=== PATIENT | female | born 1955 | race Two or more races ===

== ENCOUNTER → 2017-07-19 | Emergency (ER) | payer OTHER ==
[~2017-07-19] VITALS: Ht 167.6 cm; Wt 83.5 kg
[~2017-07-19] MED LIST: MELOXICAM7.5 MG; METHOCARBAMOL500 MG
== END | disposition home or self-care (01) ==
LOC: ER 10:39
DX: N13.39 Other hydronephrosis (principal); R10.813 Right lower quadrant abdominal tenderness

== ENCOUNTER 2019-12-09 11:57 | Emergency (ER) | payer OTHER ==
[~2019-12-09] VITALS: Ht 167.6 cm; Wt 70.8 kg
[2019-12-09] MEDS ORDERED: [UNRECOGNIZED DRUG - REMARK] (12:35)
== END 2019-12-09 22:42 | disposition home or self-care (01) ==
LOC: ER 11:57
DX: R13.19 Other dysphagia (principal)

== ENCOUNTER 2021-07-07 02:25 | Emergency (ER) | payer OTHER ==
[~2021-07-07] VITALS: Ht 167.6 cm; Wt 61.2 kg
[~2021-07-07 02:25] MED LIST changes: +[UNRECOGNIZED DRUG - REMARK]
[2021-07-07] MEDS ORDERED: VISTARIL25 MG (02:55)
== END 2021-07-07 09:25 | disposition home or self-care (01) ==
LOC: ER 02:25
DX: N20.1 Calculus of ureter (principal); R10.2 Pelvic and perineal pain

== ENCOUNTER 2021-07-11 14:13 | Emergency (ER) | payer OTHER ==
[~2021-07-11] VITALS: Ht 167.6 cm; Wt 59.4 kg
[~2021-07-11 14:13] MED LIST changes: +VISTARIL25 MG
[2021-07-12] MEDS ORDERED: PERCOCET 10-321 EACH PO (10:44)
== END 2021-07-11 19:44 | disposition home or self-care (01) ==
LOC: ER 14:13
DX: N20.1 Calculus of ureter (principal); R10.32 Left lower quadrant pain

== ENCOUNTER 2021-07-12 10:19 | Inpatient (IN) | payer OTHER ==
[~2021-07-12] VITALS: Ht 167.6 cm; Wt 59.4 kg
[2021-07-12] MEDS ORDERED: PERCOCET 10-321 EACH PO (10:44)
== END 2021-07-12 20:30 | disposition home or self-care (01) | DRG 661 ==
LOC: ER 10:19 → SEC-K 12:01 → O/R 12:01
PROVIDERS: ADMIT Urology; ATTEND Urology
PROC: BT1FZZZ Fluoroscopy of Left Kidney, Ureter and Bladder (ICD-10-PCS; 2021-07-12)
PROC: 0T778DZ Dilation of Left Ureter with Intraluminal Device, Via Natural or Artificial Opening Endoscopic (ICD-10-PCS; principal; 2021-07-12 17:00)
DX: N20.1 Calculus of ureter (principal); R10.9 Unspecified abdominal pain; Z20.822 Contact with and (suspected) exposure to COVID-19

== ENCOUNTER 2021-07-18 07:37 | Outpatient (CLI) | payer OTHER ==
[~2021-07-18 07:37] MED LIST changes: +PERCOCET 10-321 EACH PO
== END 2021-07-18 07:38 | disposition home or self-care (01) ==
LOC: RAD 07:37
PROVIDERS: ATTEND Urology
DX: N20.1 Calculus of ureter (principal)

== ENCOUNTER 2021-11-26 13:30 | Outpatient (CLI) | payer OTHER | END 2021-11-26 13:31 | disposition home or self-care (01) | LOC: RAD 13:30 | PROVIDERS: ATTEND Urology | DX: N20.1 Calculus of ureter (principal) ==

== ENCOUNTER 2021-12-05 05:20 | Day surgery (SDC) | payer OTHER ==
[~2021-12-05] VITALS: Ht 167.6 cm; Wt 61.2 kg
== END 2021-12-05 14:55 | disposition home or self-care (01) ==
LOC: CIR.AMB 05:20
PROVIDERS: ATTEND Urology
DX: N20.1 Calculus of ureter (principal); Z88.6 Allergy status to analgesic agent; M79.7 Fibromyalgia; Z85.89 Personal history of malignant neoplasm of other organs and systems

== ENCOUNTER 2021-12-26 10:52 | Outpatient (CLI) | payer OTHER | END 2021-12-26 11:06 | disposition home or self-care (01) | LOC: RAD 10:52 | PROVIDERS: ATTEND Urology | DX: N20.1 Calculus of ureter (principal) ==

== ENCOUNTER 2022-06-06 15:52 | Emergency (ER) | payer OTHER ==
[~2022-06-06] VITALS: Ht 167.6 cm; Wt 60.3 kg
== END 2022-06-06 19:33 | disposition home or self-care (01) ==
LOC: ER 15:52
DX: B34.9 Viral infection, unspecified (principal); Z85.89 Personal history of malignant neoplasm of other organs and systems; Z88.6 Allergy status to analgesic agent; Z20.822 Contact with and (suspected) exposure to COVID-19

== ENCOUNTER 2023-04-01 14:50 | Emergency (ER) | payer OTHER ==
[~2023-04-01] VITALS: Ht 162.6 cm; Wt 72.6 kg
[2023-04-01] MEDS ORDERED: ZYRTEC10 MG PO (21:23)
[2023-04-01] MEDS ORDERED: MUCINEX DM ER1 EACH PO (21:23)
[2023-04-01] MEDS ORDERED: AYR SALINE50 ML NASAL (21:23)
== END 2023-04-01 22:27 | disposition home or self-care (01) ==
LOC: ER 14:50
DX: J06.9 Acute upper respiratory infection, unspecified (principal); Z88.6 Allergy status to analgesic agent; G43.909 Migraine, unspecified, not intractable, without status migrainosus; D64.9 Anemia, unspecified; C94.80 Other specified leukemias not having achieved remission
CPT/HCPCS: 36415; 96372; 99284; J1100

== ENCOUNTER 2023-05-27 16:42 | Emergency (ER) | payer OTHER ==
[~2023-05-27] VITALS: Ht 167.6 cm; Wt 66.7 kg
[~2023-05-27 16:42] MED LIST changes: +AYR SALINE50 ML NASAL; +MUCINEX DM ER1 EACH PO; +ZYRTEC10 MG PO
[2023-05-27] MEDS ORDERED: VITAMIN E (16:50)
[2023-05-27 19:06] LABS: HEMATOCRIT 33.7 % (36.0-45.00); HEMOGLOBIN 11.5 g/dL (12.0-15.00); MEAN CELL VOLUME 92.2 fL (80.00-100.00); MEAN CORPUSCULAR HEMOGLOBIN 31.4 pg (27.00-32.0); RED BLOOD COUNT 3.66 M/uL (4.00-6.00)
[2023-05-27 19:09] LABS: PLATELET COUNT 119 K/uL (150-450)
[2023-05-27 19:12] LABS: ALBUMIN 3.6 gm/dL (3.4-5.0); BILIRUBIN TOTAL 0.35 mg/dL (0.3-1.2); CALCIUM 8.9 mg/dL (8.5-10.1); CREATININE SERUM 0.53 mg/dL (0.55-1.02); GFR 115.77; GLOBULINA 2.7 G/DL (2.4-3.5); POTASSIUM 3.44 mEq/L (3.5-5.1); TOTAL PROTEIN 6.3 gm/dL (6.4-8.2)
[2023-05-27] MEDS ORDERED: MUCINEX D ER 61 EACH PO (19:57)
[2023-05-27] MEDS ORDERED: SINGULAIR10 MG PO (19:57)
[2023-05-27] MEDS ORDERED: ZYRTEC10 MG PO (19:57)
[2023-05-27] MEDS ORDERED: RAYOS2 MG PO (19:57)
== END 2023-05-27 20:36 | disposition home or self-care (01) ==
LOC: ER 16:43
PROVIDERS: General Practice
DX: J06.9 Acute upper respiratory infection, unspecified (principal); Z20.822 Contact with and (suspected) exposure to COVID-19
CPT/HCPCS: 36415; 96372; 99283; J1100